=== PATIENT | male | born 1970 | race Asian ===

== ENCOUNTER 2016-05-01 12:34 | Day surgery (SDC) | payer BC ==
[2016-05-01] MEDS ORDERED: DIPHENHYDRAMINE HCL 50 MG/ML VIAL ONE (12:38)
[2016-05-01] MEDS ORDERED: NALOXONE HCL INJ/PF 0.4 MG/1 ML SDV ONE (12:38)
[2016-05-01] MEDS ORDERED: FLUMAZENIL INJ 0.5 MG/5 ML VIAL IV ONE (12:39)
[2016-05-01] MEDS ORDERED: MIDAZOLAM 2 MG/2 ML INJ ONE (12:39)
[2016-05-01] MEDS ORDERED: EPINEPHRINE INJ 1 MG/10 ML DISP.SYRIN ONE (12:39)
[2016-05-01] MEDS ORDERED: PROMETHAZINE HCL INJ 25 MG/1 ML VIAL ONE (12:39)
[2016-05-01] MEDS ORDERED: GLUCAGON,HUMAN RECOMB 1 MG INJ ONE (12:39)
[2016-05-01] MEDS ORDERED: ONDANSETRON HCL INJ/PF 4 MG/2 ML SDV ONE (12:39)
[2016-05-01] MEDS: FENTANYL CITRATE INJ/PF 100 MCG/2 ML AMPUL ONE ×2 (13:22→13:24)
--- NOTE | 2016-05-01 13:30 | Operative Report ---
Operative Report DATE OF SURGERY: 05/01/16 Operative Report: The risks benefits and alternatives of the procedure explained to the patient in detail and informed consent is obtained that GIF Olympus video scope was inserted into the patient's mouth and hypopharynx the esophagus is identified intubated and insufflated the scope was then advanced through the esophagus stomach and duodenum retroflexion maneuver is done the esophagus stomach and first and second portions of the duodenum examined PREOPERATIVE DIAGNOSIS: Dysphagia, epigastric pain POSTOPERATIVE DIAGNOSIS: Gastritis pouch is obtained rule out Helicobacter pylori OPERATION: EGD with biopsy SURGEON: SILVA STRANGE ANESTHESIA: Moderate Sedation - 2 mg of Versed, 75 g of fentanyl. TISSUE REMOVED OR ALTERED: Gastric specimens rule out Helicobacter pylori COMPLICATIONS: None. ESTIMATED BLOOD LOSS: done. INTRAOPERATIVE FINDINGS: Patent esophagus. First and second portions of the duodenum normal. Stomach as described PROCEDURE: Patient tolerated the procedure well. No immediate postprocedure complications are noted. Patient is discharged in good condition. Discharge date 05/01/2016. Discharge diet: Regular. Discharge activity: Regular. 2-3 week follow-up to discuss findings. Patient is instructed to call the office or go to emergency room to any further problems or questions. We'll await on biopsies
[2016-05-01 14:39] VITALS: BP 105/63
== END 2016-05-01 14:42 | disposition home or self-care (01) ==
LOC: END 12:34
PROVIDERS: ATTEND Internal Medicine Gastroenterology
PROC: 0DB68ZX Excision of Stomach, Via Natural or Artificial Opening Endoscopic, Diagnostic (ICD-10-PCS; principal; 2016-05-01 13:30)
DX: R10.13 Epigastric pain (principal); R13.10 Dysphagia, unspecified; K21.9 Gastro-esophageal reflux disease without esophagitis; E78.2 Mixed hyperlipidemia; R73.03 Prediabetes; Z87.11 Personal history of peptic ulcer disease; Z79.899 Other long term (current) drug therapy; Z79.84 Long term (current) use of oral hypoglycemic drugs
CPT/HCPCS: 43239; 88305 ×2; J2250; J3010; J0171; J1200; J1610; J2310; J2405; J2550; J3490